=== PATIENT | female | born 1970 | race Caucasian/White ===

== ENCOUNTER → 2023-07-30 06:22 | Day surgery (SDC) | payer OTHER, SELFPAY | LOC: GI 06:22 | PROVIDERS: ATTENDING PHYSICIAN Surgery; FAMILY PHYSICIAN Internal Medicine | DX: Z12.11 Encounter for screening for malignant neoplasm of colon (principal); Q43.8 Other specified congenital malformations of intestine | CPT/HCPCS: G0121 ==